=== PATIENT | female | born 1960 | race Caucasian/White ===

== ENCOUNTER → 2019-06-09 | Outpatient (CLI) | payer MEDICARE, OTHER ==
--- NOTE | 2019-06-09 12:08 | CT ---
EXAMINATION TYPE: CT sinus wo con DATE OF EXAM: 06/09/2019 COMPARISON: None HISTORY: Facial pressure and pain. Prior sinus surgery. CT DLP: 583.[address] of the paranasal sinuses was performed in the axial and coronal planes. Bone and soft tissue settings are submitted. The paranasal sinuses demonstrate normal aeration and development. Mucosal thickening sphenoid sinus. Remaining paranasal sinuses are well-aerated. The osteal meatal units are patent bilaterally. The nasal septum is midline. No bony destructive changes are seen within the field of view. IMPRESSION: Mucosal thickening sphenoid sinus. Remaining paranasal sinuses are well-aerated.
== END | disposition home or self-care (01) ==
LOC: RADCTMAIN 11:31
PROVIDERS: ATTEND Otolaryngology
DX: J34.89 Other specified disorders of nose and nasal sinuses (principal)
CPT/HCPCS: 70486

== ENCOUNTER 2020-03-14 01:14 | Emergency (ER) | payer MEDICARE, OTHER ==
[2020-03-14] MEDS ORDERED: SODIUM CHLORIDE 0.9% 1,000 ML IV STA (01:53)
[2020-03-14 02:11] LABS: Basophils # (A) 0.1 k/uL (0-0.2); Basophils % (A) 1 %; Eosinophils # (A) 0.2 k/uL (0-0.7); Eosinophils % (A) 2 %; HGB 12.4 gm/dL (11.4-16.0); Lymphocytes # (A) 3.8 k/uL (1.0-4.8); Lymphocytes % (A) 44 %; MCH 29.9 pg (25.0-35.0); MCHC 32.6 g/dL (31.0-37.0); MCV 91.5 fL (80.0-100.0); Mean Platelet Volume 8.5; Monocytes # (A) 0.7 k/uL (0-1.0); Monocytes % (A) 8 %; Neutrophils # (A) 3.6 k/uL (1.3-7.7); Neutrophils % (A) 42 %; Platelet Count 269 k/uL (150-450); RBC 4.15 m/uL (3.80-5.40); RDW 12.8 % (11.5-15.5); WBC 8.5 k/uL (3.8-10.6)
--- NOTE | 2020-03-14 02:16 | ED ---
General Adult HPI - General Chief complaint: Syncope Stated complaint: anxiety Time Seen by Provider: 03/14/20 01:19 Source: patient, EMS, RN notes reviewed Mode of arrival: EMS Limitations: no limitations - History of Present Illness Initial comments: 59-year-old female presents to the emergency department for a chief complaint of syncopal episode. Patient reports that she had [place] fried chicken earlier today and it made her feel very gassy. States that she did not feel like she was adjusting this. Patient states that she started to feel better this evening however was very stressed because her daughter has a kidney stone. Patient reports that her daughter was feeling better however started have significant pain. Patient states this made her very anxious and she tried to smoke marijuana but it did not help. Patient states her daughter was laying on the floor and patient started to have a minor panic attack. States she stood up and walked to the kitchen to call for her when she started to feel lightheaded and passed out. Patient did hit her head. She does not take blood thinners.Patient has no other complaints at this time including shortness of breath, chest pain, abdominal pain, nausea or vomiting, headache, or visual changes. - Related Data Allergies Allergy/AdvReac Type Severity Reaction Status Date / Time Penicillins Allergy Dyspnea Verified 03/14/20 02:01 adhesive AdvReac Rash/Hives Verified 03/14/20 02:01 alendronate sodium AdvReac Abdominal Verified 03/14/20 02:01 [From Fosamax] Pain bee venom protein (honey bee) AdvReac Swelling Verified 03/14/20 02:01 ciprofloxacin [From Cipro] AdvReac Unknown Verified 03/14/20 02:01 fexofenadine [From Kimberly-D] AdvReac Rash/Hives Verified 03/14/20 02:01 guaifenesin AdvReac Rash/Hives Verified 03/14/20 02:01 hydromorphone [From Dilaudid] AdvReac Rash/Hives Verified 03/14/20 02:01 ibuprofen [From Advil] AdvReac Rash/Hives Verified 03/14/20 02:01 morphine AdvReac Rash/Hives Verified 03/14/20 02:01 pseudoephedrine AdvReac Rash/Hives Verified 03/14/20 02:01 [From Kimberly-D] Sulfa (Sulfonamide AdvReac Rash/Hives Verified 03/14/20 02:01 Antibiotics) Tetracyclines AdvReac Rash/Hives Verified 03/14/20 02:01 Review of Systems ROS Statement: Those systems with pertinent positive or pertinent negative responses have been documented in the HPI. ROS Other: All systems not noted in ROS Statement are negative. Past Medical History Past Medical History: Hypertension History of Any Multi-Drug Resistant Organisms: None Reported Past Surgical History: Orthopedic Surgery Additional Past Surgical History / Comment(s): Sinus surgery, tumor removal Past Psychological History: Anxiety Smoking Status: Current every day smoker Past Alcohol Use History: None Reported Past Drug Use History: Marijuana General Exam Limitations: no limitations General appearance: alert, in no apparent distress Head exam: Present: atraumatic, normocephalic, normal inspection Eye exam: Present: normal appearance, PERRL, EOMI. Absent: scleral icterus, conjunctival injection, periorbital swelling ENT exam: Present: normal exam, mucous membranes moist Neck exam: Present: normal inspection, full ROM. Absent: tenderness, meningismus, lymphadenopathy Respiratory exam: Present: normal lung sounds bilaterally. Absent: respiratory distress, wheezes, rales, rhonchi, stridor Cardiovascular Exam: Present: regular rate, normal rhythm, normal heart sounds. Absent: systolic murmur, diastolic murmur, rubs, gallop, clicks Neurological exam: Present: alert Course Vital Signs 03/14/20 03/14/20 03/14/20 01:17 03:20 03:29 Temperature 96.2 F L 97.5 F L Pulse Rate 67 65 65 Respiratory 19 17 17 Rate Blood Pressure 117/52 110/72 O2 Sat by Pulse 99 98 Oximetry EKG Findings - EKG Comments: EKG Findings:: Normal sinus rhythm, ventricular rate 66, OR interval 160, QTC 471 Medical Decision Making - Medical Decision Making CBC CMP unremarkable. Chest x-ray shows no evidence of acute cardiopulmonary process. CT brain shows no acute intracranial process. CT cervical spine shows no acute osseous findings. Patient refused IV fluids. Patient stated she did not want her IV and any longer. States it was causing pain to her antecubital fossa. Patient did not want another IV placed. Patient agrees to orally rehydrate. CBC CMP unremarkable. Troponin is negative. Given history going from a sitting to standing position patient likely had a vasovagal episode. She is rehydrating with oral water. Will follow up with primary care. He will return here for worsening symptoms. - Lab Data Result diagrams: 03/14/20 01:30 03/14/20 01:30 Lab Results 03/14/20 03/14/20 03/14/20 Range/Units 01:30 01:30 01:30 WBC 8.5 (3.8-10.6) k/uL RBC 4.15 (3.80-5.40) m/uL Hgb 12.4 (11.4-16.0) gm/dL Hct 38.0 (34.0-46.0) % MCV 91.5 (80.0-100.0) fL MCH 29.9 (25.0-35.0) pg MCHC 32.6 (31.0-37.0) g/dL RDW 12.8 (11.5-15.5) % Plt Count 269 (150-450) k/uL Neutrophils % 42 % Lymphocytes % 44 % Monocytes % 8 % Eosinophils % 2 % Basophils % 1 % Neutrophils # 3.6 (1.3-7.7) k/uL Lymphocytes # 3.8 (1.0-4.8) k/uL Monocytes # 0.7 (0-1.0) k/uL Eosinophils # 0.2 (0-0.7) k/uL Basophils # 0.1 (0-0.2) k/uL PT 10.3 (9.0-12.0) sec INR 1.0 (<1.2) APTT 23.2 (22.0-30.0) sec Sodium 135 L (137-145) mmol/L Potassium 3.8 (3.5-5.1) mmol/L Chloride 106 (98-107) mmol/L Carbon Dioxide 24 (22-30) mmol/L Anion Gap 5 mmol/L BUN 11 (7-17) mg/dL Creatinine 0.84 (0.52-1.04) mg/dL Est GFR (CKD-EPI)AfAm 89 (>60 ml/min/1.73 sqM) Est GFR (CKD-EPI)NonAf 77 (>60 ml/min/1.73 sqM) Glucose 103 H (74-99) mg/dL Calcium 8.7 (8.4-10.2) mg/dL Magnesium 1.9 (1.6-2.3) mg/dL Total Bilirubin 0.5 (0.2-1.3) mg/dL AST 22 (14-36) U/L ALT 13 (4-34) U/L Alkaline Phosphatase 73 (38-126) U/L Troponin I (0.000-0.034) ng/mL Total Protein 5.7 L (6.3-8.2) g/dL Albumin 3.6 (3.5-5.0) g/dL Urine Color Urine Appearance (Clear) Urine pH (5.0-8.0) Ur Specific [place] (1.001-1.035) Urine Protein (Negative) Urine Glucose (UA) (Negative) Urine Ketones (Negative) Urine Blood (Negative) Urine Nitrite (Negative) Urine Bilirubin (Negative) Urine Urobilinogen (<2.0) mg/dL Ur Leukocyte Esterase (Negative) 03/14/20 03/14/20 Range/Units 01:30 02:55 WBC (3.8-10.6) k/uL RBC (3.80-5.40) m/uL Hgb (11.4-16.0) gm/dL Hct (34.0-46.0) % MCV (80.0-100.0) fL MCH (25.0-35.0) pg MCHC (31.0-37.0) g/dL RDW (11.5-15.5) % Plt Count (150-450) k/uL Neutrophils % % Lymphocytes % % Monocytes % % Eosinophils % % Basophils % % Neutrophils # (1.3-7.7) k/uL Lymphocytes # (1.0-4.8) k/uL Monocytes # (0-1.0) k/uL Eosinophils # (0-0.7) k/uL Basophils # (0-0.2) k/uL PT (9.0-12.0) sec INR (<1.2) APTT (22.0-30.0) sec Sodium (137-145) mmol/L Potassium (3.5-5.1) mmol/L Chloride (98-107) mmol/L Carbon Dioxide (22-30) mmol/L Anion Gap mmol/L BUN (7-17) mg/dL Creatinine (0.52-1.04) mg/dL Est GFR (CKD-EPI)AfAm (>60 ml/min/1.73 sqM) Est GFR (CKD-EPI)NonAf (>60 ml/min/1.73 sqM) Glucose (74-99) mg/dL Calcium (8.4-10.2) mg/dL Magnesium (1.6-2.3) mg/dL Total Bilirubin (0.2-1.3) mg/dL AST (14-36) U/L ALT (4-34) U/L Alkaline Phosphatase (38-126) U/L Troponin I <0.012 (0.000-0.034) ng/mL Total Protein (6.3-8.2) g/dL Albumin (3.5-5.0) g/dL Urine Color Yellow Urine Appearance Clear (Clear) Urine pH 7.0 (5.0-8.0) Ur Specific [place] 1.014 (1.001-1.035) Urine Protein Negative (Negative) Urine Glucose (UA) Negative (Negative) Urine Ketones Negative (Negative) Urine Blood Negative (Negative) Urine Nitrite Negative (Negative) Urine Bilirubin Negative (Negative) Urine Urobilinogen <2.0 (<2.0) mg/dL Ur Leukocyte Esterase Negative (Negative) Disposition Clinical Impression: Vasovagal syncope Disposition: HOME SELF-CARE Condition: Good Instructions (If sedation given, give patient instructions): Syncope (ED) Additional Instructions: Please follow up with primary care in 1-2 days. Please return here to the emergency room should you have any worsening symptoms. Is patient prescribed a controlled substance at d/c from ED?: No Referrals: Stephen Verduzco MD [Primary Care Provider] - 1-2 days Time of Disposition: 03:29
--- NOTE | 2020-03-14 02:19 | XR ---
EXAM: XR Chest, 2 Views CLINICAL HISTORY: ITS.REASON XR Reason: syncope TECHNIQUE: Frontal and lateral views of the chest. COMPARISON: No relevant prior studies available. FINDINGS: Lungs: Unremarkable. No consolidation. Pleural space: Unremarkable. No pleural effusion or pneumothorax. Heart: Unremarkable. No cardiomegaly or pulmonary vascular congestion. Mediastinum: Unremarkable. Bones/joints: Unremarkable. IMPRESSION: No evidence of acute cardiopulmonary disease.
[2020-03-14 02:21] LABS: Partial Thromboplastin Time 23.2 sec (22.0-30.0); Prothrombin Time 10.3 sec (9.0-12.0)
[2020-03-14 02:22] LABS: Albumin 3.6 g/dL (3.5-5.0); Calcium 8.7 mg/dL (8.4-10.2); Magnesium 1.9 mg/dL (1.6-2.3); Potassium 3.8 mmol/L (3.5-5.1); Total Bilirubin 0.5 mg/dL (0.2-1.3); Total Protein 5.7 g/dL (6.3-8.2)
--- NOTE | 2020-03-14 02:34 | CT ---
EXAM: CT Head Without Intravenous Contrast CLINICAL HISTORY: ITS.REASON CT Reason: syncope TECHNIQUE: Axial computed tomography images of the head/brain without intravenous contrast. CTDI is 45.2 mGy and DLP is 1007 mGy-cm. This CT exam was performed using one or more of the following dose reduction techniques: automated exposure control, adjustment of the mA and/or kV according to patient size, and/or use of iterative reconstruction technique. COMPARISON: No relevant prior studies available. FINDINGS: Brain: Mild encephalomalacia in the lateral right cerebellum. Joseph- white matter differentiation preserved. No acute intracranial hemorrhage, mass effect, or edema. Mild cortical cerebral volume loss. Ventricles: Unremarkable. No ventriculomegaly. Bones/joints: Status post right suboccipital craniectomy with resection of the posterior aspect of the mastoid portion of the right temporal bone. No skull fracture. Soft tissues: Unremarkable. Sinuses: Unremarkable as visualized. No acute sinusitis. Mastoid air cells: Unremarkable as visualized. No mastoid effusion. IMPRESSION: No acute intracranial process. EXAM: CT Cervical Spine Without Intravenous Contrast CLINICAL HISTORY: ITS.REASON CT Reason: syncope TECHNIQUE: Axial computed tomography images of the cervical spine without intravenous contrast. CTDI is a 7.8 mGy and DLP is 218.5 mGy-cm. This CT exam was performed using one or more of the following dose reduction techniques: automated exposure control, adjustment of the mA and/or kV according to patient size, and/or use of iterative reconstruction technique. COMPARISON: No relevant prior studies available. FINDINGS: Vertebrae: Straightening of the cervical spine with preservation of vertebral body height and alignment. No acute fracture or subluxation. Discs/spinal canal/neural foramina: Mild degenerative disc disease at C6-C7. Right greater than left facet arthropathy. No spinal canal stenosis. Soft tissues: Unremarkable. IMPRESSION: No acute osseous findings.
[2020-03-14 03:00] LABS: Appearance,Urine Clear (Clear); Bilirubin,Urine Negative (Negative); Blood,Urine Negative (Negative); Color,Urine Yellow; Glucose,Urine (UA) Negative (Negative); Ketones,Urine Negative (Negative); Leukocyte Esterase,Urine Negative (Negative); Nitrite,Urine Negative (Negative); Protein,Urine Negative (Negative); Specific Gravity,Urine 1.014 (1.001-1.035); Urobilinogen,Urine <2.0 mg/dL (<2.0)
[2020-03-14 03:20] VITALS: PULSE 65; RESP 17
[2020-03-14 03:30] VITALS: BP 110/72; TEMP 97.5
== END 2020-03-14 03:37 | disposition home or self-care (01) ==
LOC: EC 01:14
DX: R55 Syncope and collapse (principal); F17.200 Nicotine dependence, unspecified, uncomplicated; Z88.0 Allergy status to penicillin; Z91.048 Other nonmedicinal substance allergy status; Z88.8 Allergy status to other drugs, medicaments and biological substances; Z91.030 Bee allergy status; Z88.1 Allergy status to other antibiotic agents; Z88.5 Allergy status to narcotic agent; Z88.6 Allergy status to analgesic agent; Z88.2 Allergy status to sulfonamides
CPT/HCPCS: 36415; 70450; 71046; 72125; 80053; 81003; 83735; 84484; 85025; 85610; 85730; 93005; 99285

== ENCOUNTER → 2021-01-22 | Outpatient (CLI) | payer MEDICARE, OTHER ==
[2021-01-22 19:23] LABS: Basophils # (A) 0.07 X 10*3/uL (0.00-0.10); Basophils % (A) 0.7 %; Eosinophils % (A) 0.9 %; HCT 43.3 % (37.2-46.3); HGB 13.9 g/dL (12.0-15.0); Lymphocytes # (A) 2.43 X 10*3/uL (0.90-5.00); Lymphocytes % (A) 22.8 %; MCH 30.4 pg (27.0-32.0); MCHC 32.1 g/dL (32.0-37.0); MCV 94.7 fL (80.0-97.0); Mean Platelet Volume 10.9 fL (9.5-12.2); Monocytes # (A) 1.02 X 10*3/uL (0.20-1.00); Monocytes % (A) 9.6 %; Neutrophils % (A) 65.6 %; Platelet Count 339 X 10*3/uL (140-440); RBC 4.57 X 10*6/uL (4.10-5.20); RDW 13.1 % (11.5-14.5); WBC 10.66 X 10*3/uL (4.50-10.00)
[2021-01-22 22:32] LABS: % Iron Saturation 31.49 (12.00-45.00)
== END | disposition home or self-care (01) ==
LOC: LABWHC1 12:06
PROVIDERS: ATTEND Internal Medicine Endocrinology, Diabetes & Metabolism
DX: E03.8 Other specified hypothyroidism (principal); L65.9 Nonscarring hair loss, unspecified
CPT/HCPCS: 36415; 83540; 83550; 84443; 85025

== ENCOUNTER → 2021-10-02 | Outpatient (CLI) | payer MEDICARE, OTHER ==
--- NOTE | 2021-10-03 02:18 | MR ---
EXAMINATION TYPE: MR knee RT wo con DATE OF EXAM: 10/02/2021 COMPARISON: None HISTORY: Right knee all over pain Multiplanar multiecho imaging of the right knee without contrast. There is knee joint effusion. The anterior and posterior cruciate ligaments are intact. The medial an d lateral menisci show no definite tear.. The collateral ligaments appear intact. There is some degen erative mild thinning of the lateral meniscus. There is slight narrowing of the lateral joint space. There is no evidence of a fracture. There is no bony destructive process. Patella is intact. The join t spaces are fairly normal. IMPRESSION: Knee joint effusion. No evidence of meniscal tear. There is 5 mm degenerative cyst at the base of the tibial spines. There is some minor osteoarthritis in the lateral joint space.
== END | disposition home or self-care (01) ==
LOC: RADMRIMAIN 11:06
PROVIDERS: ATTEND Orthopaedic Surgery
DX: M25.461 Effusion, right knee (principal); M85.661 Other cyst of bone, right lower leg; M17.11 Unilateral primary osteoarthritis, right knee

== ENCOUNTER → 2021-10-09 | Outpatient (CLI) | payer MEDICARE, OTHER ==
[2021-10-09 23:27] LABS: Basophils # (A) 0.06 X 10*3/uL (0.00-0.10); Basophils % (A) 0.8 %; Eosinophils # (A) 0.09 X 10*3/uL (0.04-0.35); Eosinophils % (A) 1.3 %; HCT 40.5 % (37.2-46.3); HGB 13.1 g/dL (12.0-15.0); Immature Grans, Automated 0.3 %; Lymphocytes # (A) 2.23 X 10*3/uL (0.90-5.00); Lymphocytes % (A) 31.4 %; MCH 30.2 pg (27.0-32.0); MCHC 32.3 g/dL (32.0-37.0); MCV 93.3 fL (80.0-97.0); Mean Platelet Volume 11.3 fL (9.5-12.2); Monocytes # (A) 0.67 X 10*3/uL (0.20-1.00); Monocytes % (A) 9.4 %; NRBC Per 100 WBC 0 /100 WBCS (0.0-0.0); Neutrophils # (A) 4.03 X 10*3/uL (1.80-7.70); Neutrophils % (A) 56.8 %; Platelet Count 308 X 10*3/uL (140-440); RBC 4.34 X 10*6/uL (4.10-5.20); RDW 13.3 % (11.5-14.5)
[2021-10-09 23:29] LABS: Carbon Dioxide 23.7 mmol/L (20.0-27.5); Potassium 5.2 mmol/L (3.5-5.5)
== END | disposition home or self-care (01) ==
LOC: LABPAT 15:23
PROVIDERS: ATTEND Orthopaedic Surgery
DX: Z01.812 Encounter for preprocedural laboratory examination (principal); M23.91 Unspecified internal derangement of right knee
CPT/HCPCS: 80051; 85025

== ENCOUNTER 2021-10-17 10:20 | Day surgery (SDC) | payer MEDICARE, OTHER ==
[2021-10-15 14:38] VITALS: BMI 23.3
--- NOTE | 2021-10-16 17:25 | HP ---
HISTORY AND PHYSICAL DATE OF SURGERY: 10/17/2021 Bella Steward is a 61-year-old patient seen with progressive right knee pain. Options for treatment were discussed with her. She elected to proceed with right knee arthroscopy. Consent was obtained. PAST MEDICAL HISTORY: Hypertension, asthma, gastroesophageal reflux disease, hypothyroidism. PAST SURGICAL HISTORY: Bilateral knee arthroscopy, hysterectomy. DAILY MEDICATIONS: Verapamil, Xanax, Zoloft, Synthroid. ALLERGIES: SULFA, PENICILLIN, TETRACYCLINE, DILAUDID. SOCIAL HISTORY: She denies tobacco use. PHYSICAL EVALUATION OF THE RIGHT KNEE: Her range of motion is zero to 125. Mild effusion. Tenderness, lateral joint line. Positive lateral Montserrat's. Ligaments stable. Hip rotation without pain. Distal neurovascular exam intact. Right knee radiographs revealed some moderate osteoarthritic changes involving the patellofemoral joint. MRI right knee revealed an effusion as well as chondromalacia. IMPRESSION: 1. Internal derangement of right knee with osteochondral tear. 2. Hypothyroidism. 3. Gastroesophageal reflux disease. PLAN: Right knee arthroscopy with chondroplasty and debridement. MMODL / IJN: [id number] /
[~2021-10-17 10:20] MED LIST: DEXAMETHASONE SOD PHOSPHATE 4 MG/ML 1 ML VIAL IV ONE; LACTATED RINGERS 1,000 ML IV SCH; MIDAZOLAM 2 MG/2 ML VIAL IV PRN; ONDANSETRON 4 MG/2 ML VIAL IVP ONE; Pre Op ABX Message 1 EACH MISC MISCELLANE ONE; SCOPOLAMINE 1.5MG/72HR PATCH TRANSDERM ONE
[2021-10-17] MEDS ORDERED: SUCCINYLCHOLINE CHLORIDE 100 MG/5 ML SYR IV ONE (12:45)
[2021-10-17] MEDS ORDERED: fentaNYL (PF) 50 MCG/ML 2 ML AMP ONE (12:45)
[2021-10-17] MEDS ORDERED: PROPOFOL 10 MG/ML 20 ML VIAL IV ONE (12:45)
[2021-10-17] MEDS ORDERED: MIDAZOLAM 2 MG/2 ML VIAL ONE (12:45)
[2021-10-17] MEDS ORDERED: LIDOCAINE 1% INJ 10MG/ML (20 ML MDV) ONE (12:45)
[2021-10-17] MEDS ORDERED: SODIUM CHLORIDE 0.9% 100 ML with ceFAZolin 2,000 MG IV ONE ×2 (12:56)
[2021-10-17] MEDS ORDERED: BUPIVACAINE (PF) 0.25% 30 ML VIAL SQ ONE (13:11)
[2021-10-17] MEDS: fentaNYL (PF) 50 MCG/ML 2 ML AMP IV PRN ×3 (13:38→13:57)
--- NOTE | 2021-10-17 13:39 | P.OP ---
Date of Procedure: 10/17/21 Preoperative Diagnosis: Internal derangement right knee Postoperative Diagnosis: 1. Grade 4 chondromalacia medial femoral condyle right knee 2. Tear medial and lateral meniscus right knee 3. Reactive synovitis medial, lateral and suprapatellar compartments right knee Procedure(s) Performed: 1. Arthroscopic microfracture medial femoral condyle right knee 2. Arthroscopic partial medial and lateral meniscectomy right knee 3. Arthroscopic partial synovectomy medial, lateral and suprapatellar compartments right knee Anesthesia: STACEYA, local Surgeon: Familia Allen Estimated Blood Loss (ml): 9 Pathology: none sent Condition: stable Disposition: PACU Indications for Procedure: 61-year-old patient seen with progressive right knee pain. After treatment options were discussed, she elected to proceed with arthroscopy. Operative Findings: See description of procedure Description of Procedure: Patient was taken to the operative suite. Patient underwent a general anesthetic by the department of anesthesia. Patient was given preoperative antibiotics. The right lower extremity was placed in a well-padded arthroscopic leg tamayo. The right leg was prepped and draped in the normal sterile orthopedic fashion. A lateral parapatellar and suprapatellar incision was made. Trochars were inserted. Arthroscopy was initiated. Suprapatellar pouch revealed diffuse thick reactive synovitis. The patellofemoral joint appeared to articulate congruently. There was grade 2 chondromalacia of the patella with no obvious osteochondral tears present. The scope was guided into the medial gutter. No loose bodies or plica were identified. The scope was then guided into the medial compartment. A medial parapatellar incision was made. Trocar inserted followed by probe. There was a radial tear involving the posterior horn of the medial meniscus. There was grade 3/4 chondromalacia medial femoral condyle with osteochondral flap tears present. There was some thick reactive synovitis anteriorly. I performed a partial medial meniscectomy getting down to stable meniscal tissue. I performed a chondroplasty of the medial femoral condyle getting down to stable osteochondral tissue. I performed a partial synovectomy decompressing the thick reactive synovitis anteriorly. I noted an area of exposed bone he'll femoral condyle weightbearing surface measuring approximately 1.5 cm in diameter. I performed a microfracture to that area penetrating the bone with resultant bleeding at the microfracture site. The residual meniscus was probed and found to be stable. The residual osteochondral surface was stable. There was good decompression of the synovitis. Scope and probe were then guided into the intercondylar notch. Cruciates were identified, probed and found to be stable. The scope and probe were then guided into lateral compartment. There was a complex tear involving the posterior horn and midbody lateral meniscus. There were grade 1/2 chondromalacia changes lateral compartment with no tears. There was some thick reactive synovitis anteriorly. I performed a partial lateral meniscectomy getting down to stable meniscal tissue. I performed a partial synovectomy compressing the thick reactive synovitis. The residual meniscus was stable. There was good decompression of the synovitis. The scope was in guided back into the suprapatellar compartment. I introduced a motorized shaver into the super patellar compartment. I debrided some piecemeal fragments of meniscus that I encountered. I performed a partial synovectomy decompressing the thick reactive synovitis. The shaver was removed. There was good decompression of the synovitis. I now took one more look around the entire knee, no residual debris. Instruments were now removed from the joint. The joint was infiltrated with .25% Marcaine. Steri-Strips were applied to the portal sites. Sterile dressings were applied. The patient was placed into a NU hose. No tourniquet was utilized. The patient was awakened, transferred to a bed and taken to recovery stable satisfactory condition.
[2021-10-17 13:52] VITALS: TEMP 97.2
[2021-10-17] MEDS ORDERED: fentaNYL (PF) 50 MCG/ML 2 ML AMP IV ONE (14:01)
[2021-10-17] MEDS ORDERED: diphenhydrAMINE 50 MG/ML 1 ML VIAL IVP ONE (14:08)
[2021-10-17] MEDS: MEPERIDINE 50 MG/ML SYRINGE IVP ONE ×2 (14:34→14:48)
[2021-10-17] MEDS ORDERED: IBUPROFEN 200 MG TAB PO ONE (15:23)
[2021-10-17 15:31] VITALS: RESP 16
[2021-10-17 15:46] VITALS: BP 114/57; PULSE 90
== END 2021-10-17 16:08 | disposition home or self-care (01) ==
LOC: OR 10:20
PROVIDERS: ATTEND Orthopaedic Surgery
DX: S83.281A Other tear of lateral meniscus, current injury, right knee, initial encounter (principal); S83.241A Other tear of medial meniscus, current injury, right knee, initial encounter; M94.261 Chondromalacia, right knee; M65.9 Synovitis and tenosynovitis, unspecified; I10 Essential (primary) hypertension; K21.9 Gastro-esophageal reflux disease without esophagitis; E03.9 Hypothyroidism, unspecified; J45.909 Unspecified asthma, uncomplicated
CPT/HCPCS: 29880; 29870; J2250; J1200; J1100; J2175; J2405; J0690; J2001; J3010; J0330; J2704

== ENCOUNTER → 2021-11-27 | Outpatient (CLI) | payer MEDICARE, OTHER ==
--- NOTE | 2021-11-27 15:07 | BD ---
EXAMINATION TYPE: Axial Bone Density DATE OF EXAM: 11/27/2021 COMPARISON: NONE CLINICAL HISTORY: 61 years year old Female. ICD-10 CODE: AGE-RELATED OSTEOPOROSIS W/O CURRENT PATHOL OGICAL FRACTURE Height: 64 IN Weight: 132 LBS FRAX RISK QUESTIONS: Secondary Osteoporosis: 3. Menopause before 45: PARTIAL HYST AGE 40 Current Tobacco Use: YES RISK FACTORS HISTORY OF: Active: MODERATE Diet low in dairy products/other sources of calcium: YES Postmenopausal woman: PARTIAL HYST AGE 40 MEDICATIONS: Thyroid Medications: YES Which medication: Synthroid How Lon+ YEARS Additional Medications: VIT D, SYNTHROID, GERD MEDS, BLOOD PRESSURE MEDS, XANAX, MIGRAINE MEDS, EXAM MEASUREMENTS: Bone mineral densitometry was performed using the [facility]. Bone mineral density as measured about the Lumbar spine is: ----- L1-L4(G/cm2): 0.987 T Score Values are as follows: ----- L1: -2.3 ----- L2: -1.6 ----- L3: -1.5 ----- L4: -1.2 ----- L1-L4: -1.6 Bone mineral density BASELINE Bone mineral density about the R hip (g/cm2): 0.625 Bone mineral density about the L hip (g/cm2): 0.597 T Score values are as follows: -----R Neck: -3.0 -----L Neck: -3.2 -----R Total: -2.7 -----L Total: -2.9 Bone mineral density BASELINE FRAX%s: The graph provided illustrates a 16.9 chance for a major osteoporotic fx and a 7.8 chance for the hips probability for fx in 10 years time. IMPRESSION: Osteoporosis NOTE: T-SCORE=SD OF THE YOUNG ADULT MEAN.
== END | disposition home or self-care (01) ==
LOC: RADBDWWP 14:12
PROVIDERS: ATTEND Family Medicine
DX: M81.0 Age-related osteoporosis without current pathological fracture (principal)
CPT/HCPCS: 77080

== ENCOUNTER → 2021-11-29 | Outpatient (CLI) | payer MEDICARE, OTHER ==
--- NOTE | 2021-11-30 02:43 | MR ---
EXAMINATION TYPE: MR brain and iac wo/w con DATE OF EXAM: 11/29/2021 COMPARISON: None HISTORY: F/U, previous acoustic neuroma removal. CONTRAST: Standard multiplanar, multisequence MRI departmental protocol images were obtained without contrast a nd with 6 mL intravenous Gadavist gadolinium contrast. Multiplanar multi echo imaging of the brain without and with IV contrast. There is cerebral cortical atrophy. There is no mass effect or midline shift. There is no evidence of intracranial hemorrhage. Diffusion images show no evidence of an acute infarct. There are scattered white matter high signal foci at the garcia-white matter junction both cerebral hemispheres that measur e up to maximum 8 mm. Most of the lesions are less than 3 mm. Total number is approximately 25. The b rainstem is intact. The corpus callosum is intact. Sella turcica appears normal. There is no evidence of orbital mass. There is a 6 mm area of faint enhancement in the posterior fossa on the right side at the right inter nal auditory canal and consistent with acoustic neuroma. This appears not significantly different raúl n old MR scan. There is slight expansion of the right internal auditory canal. IMPRESSION: Internal auditory canal larger on the right side with small enhancing mass at the orifice and consist ent with acoustic neuroma. This is not changed compared to previous exam. White matter lesions likely related to microvascular ischemia and are mostly new compared to old exam .
== END | disposition home or self-care (01) ==
LOC: RADMRIMAIN 14:24
PROVIDERS: ATTEND Family Medicine
DX: D33.3 Benign neoplasm of cranial nerves (principal); R90.82 White matter disease, unspecified
CPT/HCPCS: 70553; A9585

== ENCOUNTER → 2021-12-24 | Outpatient (CLI) | payer MEDICARE, OTHER | END | disposition home or self-care (01) | LOC: LABWHC1 13:27 | PROVIDERS: ATTEND Internal Medicine Endocrinology, Diabetes & Metabolism | DX: E03.8 Other specified hypothyroidism (principal) | CPT/HCPCS: 36415; 84443 ==

== ENCOUNTER → 2022-05-08 | Outpatient (CLI) | payer MEDICARE, OTHER ==
--- NOTE | 2022-05-09 05:38 | MR ---
EXAMINATION TYPE: MR shoulder RT wo con DATE OF EXAM: 05/08/2022 COMPARISON: None HISTORY: RT SHOULDER PAIN Multiplanar multiecho imaging of the right shoulder performed with no contrast. There is abnormal increased fluid signal on both sides of the AC joint. There is hypertrophic spurrin g at the AC joint.. There is mild subacromial impingement. There are small tear in the supraspinatus tendon near the attachment on the greater tuberosity of the humerus. I do not see a definite full-thi ckness tear. No retraction. The infraspinatus tendon is intact. The humeral head is intact. Glenoid appears intact. The biceps te ndon is intact. Subscapularis tendon appears normal. The glenoid stanislaw appear intact. IMPRESSION: Hypertrophic spurring and increased fluid at the AC joint consistent with osteoarthritis. Mild subacr omial impingement and inferior deflexion of the supraspinatus tendon and muscle. Partial tear of the supraspinatus tendon near the attachment on the greater tuberosity of the humerus .
== END | disposition home or self-care (01) ==
LOC: RADMRIMAIN 09:11
PROVIDERS: ATTEND Orthopaedic Surgery
DX: M75.111 Incomplete rotator cuff tear or rupture of right shoulder, not specified as traumatic (principal); M19.011 Primary osteoarthritis, right shoulder

== ENCOUNTER 2022-07-30 07:50 | Day surgery (SDC) | payer MEDICARE, OTHER ==
[2022-07-25 18:09] VITALS: BMI 22.3
--- NOTE | 2022-07-29 13:29 | HP ---
HISTORY AND PHYSICAL DATE OF SURGERY: 07/30/2022. HISTORY OF PRESENT ILLNESS: Bella Steward is a 61-year-old patient seen for progressive right shoulder pain. After we had options regarding treatment discussed with her, she elected to proceed with right shoulder arthroscopy. Consent regarding the procedure was obtained. PAST MEDICAL HISTORY: Hyperlipidemia, hypothyroidism, and asthma. PAST SURGICAL HISTORY: Knee arthroscopy, hysterectomy, ankle surgery. DAILY MEDICATIONS: 1. Verapamil. 2. Xanax. 3. Synthroid. 4. Ventolin. ALLERGIES: Sulfa, penicillin, tetracycline, Dilaudid. SOCIAL HISTORY: She denies tobacco use. PHYSICAL EVALUATION OF RIGHT SHOULDER: Flexion is 140 degrees, abduction 120 degrees, external rotation is 35 degrees with weakness. Tenderness along the anterior lateral acromion and rotator cuff insertion. Site impingement is positive at 90 degrees. Cross-body adduction sign is positive. Drop-arm sign is positive. Distal neurovascular exam is intact. RADIOGRAPHS: Right shoulder radiographs revealed a type 2 acromion as well as evidence for acromioclavicular joint osteoarthritis. Right shoulder MRI revealed a partial rotator cuff tendon tear, impingement and acromioclavicular joint osteoarthritis. IMPRESSION: 1. Right shoulder impingement with rotator cuff tear. 2. Right shoulder acromioclavicular joint osteoarthritis. 3. Hypertension. 4. Hypothyroidism. 5. Asthma. PLAN: Right shoulder arthroscopy with subacromial decompression, arthroscopic rotator cuff repair, and debridement. MMODL / IJN: [id number] /
[2022-07-30] MEDS ORDERED: ONDANSETRON 4 MG/2 ML VIAL IVP ONE (08:22)
[2022-07-30] MEDS ORDERED: MIDAZOLAM 2 MG/2 ML VIAL IV PRN (08:22)
[2022-07-30] MEDS ORDERED: LIDOCAINE 1% (10MG/ML) FOR IV START INTRADERMA PRN (08:22)
[2022-07-30] MEDS ORDERED: DEXAMETHASONE SOD PHOSPHATE 4 MG/ML 1 ML VIAL IV ONE (08:22)
[2022-07-30] MEDS ORDERED: LACTATED RINGERS 1,000 ML IV SCH ×2 (08:22)
[2022-07-30] MEDS ORDERED: ROPIVACAINE 5 MG/ML 30 ML VIAL ONE (10:03)
[2022-07-30] MEDS ORDERED: SUCCINYLCHOLINE CHLORIDE 200 MG/10 ML VIAL IV ONE (10:03)
[2022-07-30] MEDS ORDERED: MIDAZOLAM 2 MG/2 ML VIAL ONE (10:03)
[2022-07-30] MEDS ORDERED: PROPOFOL 10 MG/ML 20 ML VIAL IV ONE (10:03)
[2022-07-30] MEDS ORDERED: LIDOCAINE 2% INJ 20 MG/ML (2 ML VIAL) ONE (10:03)
[2022-07-30] MEDS ORDERED: KETOROLAC 15 MG/ML 1 ML VIAL ONE (10:03)
[2022-07-30 11:33] VITALS: TEMP 97.1
--- NOTE | 2022-07-30 11:37 | P.OP ---
Date of Procedure: 07/30/22 Preoperative Diagnosis: Right shoulder impingement Postoperative Diagnosis: 1. Right shoulder rotator cuff tear 2. Right shoulder impingement 3. Right shoulder partial long head biceps tendon tear Procedure(s) Performed: 1. Right shoulder arthroscopic rotator cuff repair 2. Right shoulder arthroscopic subacromial decompression 3. Right shoulder arthroscopic biceps tenotomy Anesthesia: CIRILO local Surgeon: Familia Allen Estimated Blood Loss (ml): 7 Pathology: none sent Condition: stable Disposition: PACU Indications for Procedure: 61-year-old patient seen with progressive right shoulder pain. After having treatment options discussed, she elected to proceed with arthroscopy. Operative Findings: See description of procedure Description of Procedure: Patient underwent an interscalene block by department of anesthesia. The patient was then taken to the operative suite. The patient underwent a general anesthetic by the department of anesthesia. The patient was placed into a lateral position and secured. There was appropriate padding of the bony prominence. Right shoulder was then prepped and draped in normal sterile orthopedic fashion. We placed the extremity in 10 pounds of longitudinal tract ion. A posterior incision was now made for a posterior working portal site. The trocar and cannula were inserted into the glenohumeral joint. Arthroscopy was initiated. Spinal needle was now inserted anteriorly, to ascertain the anterior working portal site. An incision was now made in that area, a trocar was inserted followed by a probe. There was some mild superficial fraying of the superior labrum. There were grade 1 chondromalacia changes of the glenohumeral joint. There was some partial tearing and hyperemia involving the long head biceps tendon. I performed an arthroscopic biceps tenotomy. The residual labrum was stable. Instruments were now removed from glenohumeral joint. Utilizing the posterior working portal site, the trocar and cannula were inserted into the subacromial space. Arthroscopy initiated. I made an incision 2 fingerbreadths lateral to the acromion. I introduced my trocar followed by my ArthroCare ablator. I now began ablating thick subacromial bursal tissue, which exposed the undersurface of the anterior acromion. There was diminished subacromial space. There was a very prominent anterior acromion. A motorized bur was introduced and a subacromial decompression was performed. I also excised some osteophytes off the inferior aspect of the distal clavicle. The AC joint was visualized and noted to be moderately arthritic, I did not think enough toward a Oj procedure. I turned my attention to the rotator cuff tendon. There was a tear involving the central portion distal supraspinatus. I debrided the margins getting down to stable tendon tissue. The defect/tear measuring 1.5 cm and was freely mobile over the footprint. I abraded the footprint with a motorized bur. With the assistance of Kelvin FERNÁNDEZ I passed 3 everted mattress sutures through good bites of rotator cuff tendon. I punched a hole in the footprint area for insertion of an anchor. All 6 limbs of suture were passed through the eyelet of a 4.75 Arthrex swivel lock anchor. I placed the eyelet into our pre-punch hole. I held in position while Kelvin FERNÁNDEZ tension all 6 limbs of suture and the plate with good fixation noted. All residual suture limbs were now clipped. We had good compression of the tendon along the entire footprint. Instruments now removed from the portal sites. All portal sites were approximated with nylon suture. Sterile dressings were applied followed by a shoulder sling. Oz FERNÁNDEZ assisted in this case. The patient was awakened, transferred to a bed, and taken to recovery in stable condition.
[2022-07-30 13:46] VITALS: BP 131/59; PULSE 71; RESP 16
--- NOTE | 2022-07-30 18:24 | P.ANPRN ---
Procedure Note - Anesthesia - Nerve Block Performed Right Interscalene Time Out Performed: Yes () Date of Procedure: 07/30/22 Procedure Start Time: Procedure Stop Time: Location of Patient: PreOp Indication: Acute Post-Operative Pain, Requested by Surgeon (Dr Allen) Sedation Type: Sedate with meaningful contact maintained Preparation: Sterile Prep Position: Supine Catheter: None Needle Types: Pajunk Needle Gauge: Other (see comment) (22g) Ultrasound used to visualize needle placement: Yes Ultrasound used to observe medication spread: Yes Injectate: 0.5% Ropivacaine (see comment for volume) (20cc) Blood Aspirated: No Pain Paresthesia on Injection Noted: No Resistance on Injection: Normal Image Stored and Saved: Yes Events: Uneventful and Well Tolerated
== END 2022-07-30 13:45 | disposition home or self-care (01) ==
LOC: OR 07:50
PROVIDERS: ATTEND Orthopaedic Surgery
DX: M75.111 Incomplete rotator cuff tear or rupture of right shoulder, not specified as traumatic (principal); G89.18 Other acute postprocedural pain; M19.011 Primary osteoarthritis, right shoulder; S46.111A Strain of muscle, fascia and tendon of long head of biceps, right arm, initial encounter; M75.41 Impingement syndrome of right shoulder; I10 Essential (primary) hypertension; E03.9 Hypothyroidism, unspecified; E78.5 Hyperlipidemia, unspecified; J45.909 Unspecified asthma, uncomplicated; F17.210 Nicotine dependence, cigarettes, uncomplicated; F12.90 Cannabis use, unspecified, uncomplicated; G43.909 Migraine, unspecified, not intractable, without status migrainosus; F41.9 Anxiety disorder, unspecified; E07.9 Disorder of thyroid, unspecified; Z88.0 Allergy status to penicillin; Z88.2 Allergy status to sulfonamides; Z88.1 Allergy status to other antibiotic agents; Z88.5 Allergy status to narcotic agent; Z79.890 Hormone replacement therapy; Z79.899 Other long term (current) drug therapy; X58.XXXA Exposure to other specified factors, initial encounter
CPT/HCPCS: 29827; 29826; 64415; 76942; C1713; J2250; J0330; J1100; J0690; J2405; J2795; J1885; J2704; J2001

== ENCOUNTER → 2022-10-22 | Outpatient (CLI) | payer MEDICARE, OTHER ==
--- NOTE | 2022-10-23 12:43 | MM ---
Reason for Exam: Screening (asymptomatic). Last screening mammogram was performed 12 month(s) ago. Patient History: Menarche at age 13. First Full-Term at age 22. Left ovary removed at age 40. Hysterectomy at age 40. Postmenopausal. Patient has history of breast feeding. Risk Values: Henna 5 year model risk: 1.4%. NCI Lifetime model risk: 7.2%. Prior Study Comparison: 04/27/2020 Bilateral Screening Mammogram, [facility]. 10/08/2021 Bilateral Screening Mammogram, [facility]. Tissue Density: The breast tissue is heterogeneously dense. This may lower the sensitivity of mammography. Findings: Analyzed By CAD. There is no suspicious group of microcalcifications or new suspicious mass in either breast. Overall Assessment: Negative, BI-RAD 1 Management: Screening Mammogram of both breasts in 1 year. A clinical breast exam by your physician is recommended on an annual basis and results should be correlated with mammographic findings. [facility] will attempt to contact patient to return for supplemental views and ultrasound if indicated. Electronically signed and approved by: Juan Alberto Blanco DO
== END | disposition home or self-care (01) ==
LOC: RADMAMWWP 13:17
PROVIDERS: ATTEND Internal Medicine
DX: Z12.31 Encounter for screening mammogram for malignant neoplasm of breast (principal); Z78.0 Asymptomatic menopausal state
CPT/HCPCS: 77063; 77067

== ENCOUNTER → 2023-02-23 | Outpatient (CLI) | payer MEDICARE, OTHER ==
[2023-02-23 21:52] LABS: Blood Urea Nitrogen 13.9 mg/dL (9.0-27.0)
== END | disposition home or self-care (01) ==
LOC: LABWHC1 13:50
PROVIDERS: ATTEND Internal Medicine Gastroenterology
DX: N28.9 Disorder of kidney and ureter, unspecified (principal)
CPT/HCPCS: 36415; 82565; 84520

== ENCOUNTER → 2023-12-02 | Outpatient (CLI) | payer MEDICARE, OTHER ==
--- NOTE | 2023-12-03 10:45 | BD ---
EXAMINATION TYPE: Axial Bone Density DATE OF EXAM: 12/02/2023 CLINICAL HISTORY: 63 years old Female. ICD-10 CODE: M81.0 osteoporosis Height: 65" Weight: 118.4lbs FRAX RISK QUESTIONS: Alcohol (3 or more units per day): No Family History (Parent hip fracture): No Glucocorticoids (More than 3mos): Yes, off and on over the years, patient has hx of brain tumor (Ex: prednisone, prednisolone, methylprednisolone, dexamethasone, and hydrocortisone). History of Fracture in Adulthood: Yes Secondary Osteoporosis: 1. Type 1 Diabetes: No 2. Hyperthyroidism: No 3. Menopause before 45: Yes 4. Malnutrition: No 5. Chronic liver disease: No Rheumatoid Arthritis: No Current Tobacco Use: Yes RISK FACTORS HISTORY OF: Hip Fracture (Right/Left): No Spine Fracture: No History of Wrist Fracture: No Surgery to Spine/Hip(right/left)/Wrist (right/left): Bilateral wrist, release MEDICATIONS: Thyroid Medications: Yes Which medication: Synthroid How Lon years Osteoporosis Medications: No EXAM MEASUREMENTS: Bone mineral densitometry was performed using the [employer] System. Bone mineral density as measured about the Lumbar spine is: ----- L1-L4(G/cm2): 0.928 T Score Values are as follows: ----- L1: -3.0 ----- L2: -2.3 ----- L3: -2.1 ----- L4: -1.4 ----- L1-L4: -2.1 Z Score Values are as follows: ----- L1: -1.3 ----- L2: -0.6 ----- L3: -0.4 ----- L4: 0.3 ----- L1-L4: -0.4 Bone mineral density has: decreased-6.0 % since study of: 11/27/2021 Bone mineral density about the R hip (g/cm2): 0.606 Bone mineral density about the L hip (g/cm2): 0.596 T Score values are as follows: -----R Neck: -2.4 -----L Neck: -3.1 -----R Total: -3.2 -----L Total: -3.3 Z Score values are as follows: -----R Neck: -0.9 -----L Neck: -1.6 -----R Total: -1.9 -----L Total: -2.0 Bone mineral density has: decreased -8.4% since study of: 11/27/2021 FRAX%s: The graph provided illustrates a 26.7% chance for a major osteoporotic fx and a 12.9% chance for the hips probability for fx in 10 years time. IMPRESSION: Osteoporosis (T Score less than -2.5). There is increased fracture risk and therapy is usually indicated based on age. Re-Screen 1-2 years. NOTE: T-SCORE=SD OF THE YOUNG ADULT MEAN.
--- NOTE | 2023-12-04 11:33 | MM ---
Reason for Exam: Screening (asymptomatic). Last mammogram was performed 1 year(s) and 1 month(s) ago. Patient History: Menarche at age 13. First Full-Term at age 22. Left ovary removed at age 40. Hysterectomy at age 40. Postmenopausal. Patient has history of breast feeding. Risk Values: Henna 5 year model risk: 1.5%. NCI Lifetime model risk: 7.0%. Prior Study Comparison: 04/27/2020 Bilateral Screening Mammogram, [facility]. 10/08/2021 Bilateral Screening Mammogram, [facility]. 10/22/2022 Bilateral MG 3D screening mammo w/cad, [facility]. Tissue Density: The breasts are heterogeneously dense, which may obscure small masses. Findings: Analyzed By CAD. There is no suspicious group of microcalcifications or new suspicious mass in either breast. Overall Assessment: Negative, BI-RAD 1 Management: Screening Mammogram of both breasts in 1 year. . Patient should continue monthly self-breast exams. A clinical breast exam by your physician is recommended on an annual basis. This exam should not preclude additional follow-up of suspicious palpable abnormalities. Note on Henna scores and lifetime risk: 1. A Henna score greater than 3% is considered moderate risk. If this is the case, consider specialist referral to assess eligibility for a risk reducing agent. 2. If overall lifetime risk for the development of breast cancer is 20% or higher, the patient may qualify for future screening with alternating mammogram and breast MRI. Electronically signed and approved by: Steve Jaquez M.D. Radiologis
== END | disposition home or self-care (01) ==
LOC: RADMAMWWP 12:18
PROVIDERS: ATTEND Internal Medicine
DX: Z12.31 Encounter for screening mammogram for malignant neoplasm of breast (principal); M85.89 Other specified disorders of bone density and structure, multiple sites; M81.0 Age-related osteoporosis without current pathological fracture; Z78.0 Asymptomatic menopausal state; Z72.0 Tobacco use
CPT/HCPCS: 77063; 77067; 77080

== ENCOUNTER → 2024-01-22 | Outpatient (CLI) | payer MEDICARE, OTHER ==
--- NOTE | 2024-01-25 10:28 | XR ---
EXAMINATION TYPE: XR thoracic spine complete DATE OF EXAM: 01/22/2024 CLINICAL HISTORY: pain TECHNIQUE: Frontal, lateral, and swimmer's view of thoracic spine are obtained. COMPARISON: None. FINDINGS: Thoracic spine show satisfactory alignment without evidence of acute fracture or dislocatio n. Vertebral body heights are preserved. Disc spaces are well preserved. Visualized ribs are unrem arkable. IMPRESSION: No acute fracture or dislocation is seen in the thoracic spine. ICD 10 NO FRACTURE, INIT IAL EVALUATION
--- NOTE | 2024-01-25 10:29 | XR ---
EXAMINATION TYPE: XR lumbar spine 2 or 3V DATE OF EXAM: 01/22/2024 CLINICAL HISTORY: pain TECHNIQUE: Three views of the lumbar spine are submitted. COMPARISON: None. FINDINGS: There are 5 lumbar type vertebral bodies identified. The lumbar spine shows satisfactory alignment w ithout evidence of acute fracture or dislocation. Vertebral body heights are within normal limits. Mi [id number] multilevel degenerative disc space narrowing and facet joint arthropathy. The overlyin g soft tissue appears unremarkable. IMPRESSION: No acute fracture or dislocation is seen in the lumbar spine. ICD 10 NO FRACTURE, INITIAL EVALUATION
--- NOTE | 2024-01-25 10:38 | XR ---
EXAMINATION TYPE: XR cervical spine limited DATE OF EXAM: 01/22/2024 CLINICAL HISTORY: pain TECHNIQUE: 3 views of the cervical spine are submitted. COMPARISON: None. FINDINGS: There is satisfactory in alignment without evidence of acute fracture or dislocation. The pre-vertebral soft tissue appears within normal limits. Mild multilevel degenerative disc space narr owing. The C1-C2 articulation is unremarkable on the open mouth view. IMPRESSION: No acute fracture or dislocation is seen in the cervical spine.
== END | disposition home or self-care (01) ==
LOC: RADXRMAIN 12:57
PROVIDERS: ATTEND Internal Medicine
DX: M54.2 Cervicalgia (principal); M54.6 Pain in thoracic spine; M54.50 Low back pain, unspecified
CPT/HCPCS: 72040; 72072; 72100

== ENCOUNTER → 2024-01-22 | Outpatient (CLI) | payer MEDICARE, OTHER ==
[2024-01-23 04:51] LABS: T4, Free (Free Thyroxine) 1.71 ng/dL (0.80-1.80)
== END | disposition home or self-care (01) ==
LOC: LABWHC1 14:13
PROVIDERS: ATTEND Internal Medicine
DX: E03.9 Hypothyroidism, unspecified (principal)
CPT/HCPCS: 36415; 84439; 84443

== ENCOUNTER → 2024-02-17 | Outpatient (CLI) | payer MEDICARE, OTHER ==
[2024-02-17 13:04] LABS: African American GFR (CKD) >90 (>60 ml/min/1.73 sqM); Blood Urea Nitrogen 14 mg/dL (7-17); Non-African American GFR(CKD) 84 (>60 ml/min/1.73 sqM)
--- NOTE | 2024-02-17 13:12 | CT ---
EXAMINATION TYPE: CT soft tissue neck w con DATE OF EXAM: 02/17/2024 COMPARISON: 03/14/2020 HISTORY: 63-year-old female R5 9.0, Sore throat and tender ears off and on x years. TECHNIQUE: Contiguous axial scanning of the soft tissues of the neck performed with IV Contrast, dwight ent injected with 100 ml mL of Isovue 300. Coronal and sagittal reconstructions performed. CT DLP: 314 mGycm Automated exposure control for dose reduction was used. FINDINGS: There is some fullness of the bilateral superior ophthalmic veins up to 5 mm caliber, possibly due to some vascular ectasia/varix. No proptosis or retrobulbar fat stranding or enlargement of the extraoc ular muscles or bulging of the cavernous sinuses is seen. Postresection changes redemonstrated along the posterior right parietal occipital parietal convexity. Otherwise, visualized intracranial structures, paranasal sinuses, and mastoid air cells appear clear . Leftward nasal septal deviation. Mild cerumen deep left external auditory canal. The nasopharynx appears clear. Mild hypertrophy of the bilateral lingual tonsils. Mild hypertrophy of the bilateral palatine tonsils . Epiglottis and prevertebral soft tissues are satisfactory. Glottic and subglottic structures as well as the tracheal column and visualized upper lungs appear cl ear. There is mild to moderate emphysematous change in the visualized upper thorax. The thyroid and submandibular glands appear satisfactory. Bilateral parotid glands mildly atrophic. No cervical lymphadenopathy is identified. IMPRESSION: 1. MILD LINGUAL AND PALATINE TONSILLAR HYPERTROPHY. OTHERWISE, NO SPECIFIC ABNORMALITY ALONG THE SOFT TISSUES OF THE NECK. 2. FULLNESS OF THE BILATERAL SUPERIOR OPHTHALMIC VEINS OF UNCLEAR ETIOLOGY. POSSIBLY DUE TO SOME VASC ULAR ECTASIA/VARIX. NO PROPTOSIS, SOFT TISSUE EDEMA, OR BULGING OF THE CAVERNOUS SINUSES TO CLEARLY I NDICATE PATHOLOGY SUCH A CAROTID CAVERNOUS FISTULA. CORRELATE FOR ANY SYMPTOMS HERE. 3. COPD WITH MILD TO MODERATE EMPHYSEMA IN THE VISUALIZED UPPER LUNGS. 4. MILD CERUMEN DEEP IN THE LEFT EXTERNAL AUDITORY CANAL.
== END | disposition home or self-care (01) ==
LOC: RADCTMAIN 11:55
PROVIDERS: ATTEND Otolaryngology
DX: J35.1 Hypertrophy of tonsils (principal); J43.9 Emphysema, unspecified; J44.9 Chronic obstructive pulmonary disease, unspecified; R59.0 Localized enlarged lymph nodes
CPT/HCPCS: 70491; 82565; 84520

== ENCOUNTER → 2024-12-06 | Outpatient (CLI) | payer MEDICARE, OTHER ==
--- NOTE | 2024-12-06 17:18 | CT ---
EXAMINATION TYPE: CT sinus wo con CT DLP: 590.1 mGycm, Automated exposure control for dose reduction was used. DATE OF EXAM: 12/06/2024 4:52 PM COMPARISON: CT soft tissue neck 02/17/2024, CT sinus 06/09/2019. CLINICAL INDICATION:Female, 64 years old with history of J32.9 CHRONIC SINUSITIS, UNSPECIFIED; PHH, C hronic sinusitis x 6-12 months, hx of sinus surgery last done in July 2020. CONTRAST: None. TECHNIQUE: Multiple thin axial images were obtained through the paranasal sinuses without the use of IV contrast. Additional coronal and sagittal reformatted images were submitted for evaluation. FINDINGS: Dental amalgam. Streak artifact which limits evaluation. Frontal sinuses: Normally developed. Minimal mucosal thickening inferiorly involving the right fronta l sinus. The left frontal sinuses clear. Frontal Recess: Clear Maxillary Sinuses: Normally developed and postsurgical changes of the bilateral medial maxillary wall s. The right maxillary sinus is clear. Minimal mucosal thickening of the left maxillary sinus. Maxillary Infundibula([facility]): Postsurgical changes and clear. Ethmoid sinuses: Normally developed. Minimal mucosal thickening within the posterior right ethmoid si nus. Minimal mucosal thickening of the anterior left ethmoid sinus. Ethmoidal notch: Supraorbital pne umatization is identified. Sphenoid sinuses: Normally developed and aerated. There is sellar sphenoid sinus pneumatization witho ut evidence of dehiscence. No dehiscence of carotid canal. No evidence of optic nerve dehiscence wit hin the sphenoid sinus. No evidence of Onodi cells. Sphenoethmoidal recesses: Clear. Nasal septum: Mildly deviated to the left. Nasal Turbinates: Within normal limits. Mastoid air cells & middle ears: The air cells are clear. The middle ears are grossly unremarkable. Modified Soft tissues & Brain: Partially seen without gross abnormality. Globes are intact. Other: Cribriform plate demonstrates symmetric Keros classification type 2 cribriform plate. No evidence of bony dehiscence of skull base. Lamina papyracea is intact without evidence of remote orbital fracture or orbital prolapse into the e thmoid sinus. IMPRESSION: Postsurgical changes from bilateral maxillary antrostomy. Minimal scattered paranasal sinus disease. [facility], , 12/06/2024 5:16 PM
== END | disposition home or self-care (01) ==
LOC: RADCTMAIN 15:56
PROVIDERS: ATTEND Otolaryngology
DX: J32.0 Chronic maxillary sinusitis (principal); J30.89 Other allergic rhinitis; J30.2 Other seasonal allergic rhinitis; J34.89 Other specified disorders of nose and nasal sinuses; Z98.890 Other specified postprocedural states
CPT/HCPCS: 70486

== ENCOUNTER → 2024-12-07 | Outpatient (CLI) | payer MEDICARE, OTHER ==
[2024-12-08 15:11] LABS: Aureo. pullulans IgE <0.10 kU/L (<0.10); Aureo. pullulans IgE Class CLASS 0; Candida albicans IgE Class CLASS 0; Com. Pigweed IgE <0.10 kU/L (<0.10); Com. Pigweed IgE Class CLASS 0; Cottonwood IgE <0.10 kU/L (<0.10); English Plantain IgE Class CLASS 0; Epicoccum purpurascens Class CLASS 0; Epicoccum purpurascens IgE <0.10 kU/L (<0.10); Johnson Grass IgE Class CLASS 0; Lamb's Quarter IgE <0.10 kU/L (<0.10); Lamb's Quarter IgE Class CLASS 0; Mucor racemosus IgE <0.10 kU/L (<0.10); Mucor racemosus IgE Class CLASS 0; Rhizopus nigricans IgE <0.10 kU/L (<0.10); Rhizopus nigricans IgE Class CLASS 0; S.rostrata/Helminth Class CLASS 0; S.rostrata/Helminth IgE <0.10 kU/L (<0.10); Sycamore(Mpl.Lf) IgE <0.10 kU/L (<0.10); Sycamore(Mpl.Lf) IgE Class CLASS 0; Timothy Grass IgE <0.10 kU/L (<0.10); Timothy Grass IgE Class CLASS 0; Walnut Tree IgE <0.10 kU/L (<0.10); Walnut Tree IgE Class CLASS 0; White Ash IgE Class CLASS 0
[2024-12-08 20:58] LABS: Alternaria alternata IgE <0.10 kU/L; Aspergillus fumagatus IgE <0.10 kU/L; Birch IgE <0.10 kU/L; Cat Epith & Dander IgE <0.10 kU/L; Cladosporian herbarum IgE <0.10 kU/L; Cockroach IgE <0.10 kU/L; Dog Dander IgE <0.10 kU/L; Maple (Box Elder) IgE <0.10 kU/L; Oak IgE <0.10 kU/L; Ragweed,Common IgE <0.10 kU/L
== END | disposition home or self-care (01) ==
LOC: LABWHC1 16:22
PROVIDERS: ATTEND Otolaryngology
DX: J30.89 Other allergic rhinitis (principal)
CPT/HCPCS: 36415; 82785; 86003